=== PATIENT | female | born 1985 | race Caucasian/White ===

== ENCOUNTER 2017-01-21 18:43 | Emergency (ER) | payer OTHER ==
[~2017-01-21] VITALS: Ht 167.6 cm; Wt 54.7 kg
[2017-01-21 18:49] VITALS: TEMP 37.2; Ht 167.6 cm; Wt 54.7 kg
[2017-01-21] MEDS ORDERED: ONDANSETRON INJ 2 MG/ML 2 ML VIAL IV STA (19:08)
[2017-01-21] MEDS ORDERED: HYDROmorphone INJ 0.5 MG/0.5 ML SYR IV STA ×2 (19:08→19:13)
[2017-01-21] MEDS ORDERED: LAMO200T38 PO (19:13)
[2017-01-21] MEDS ORDERED: MULT-513 PO (19:13)
[2017-01-21] MEDS ORDERED: BUPR-79 PO (19:13)
[2017-01-21] MEDS ORDERED: HYDROmorphone INJ 1 MG/ML SYR IV STA (19:13)
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
[2017-01-21] MEDS ORDERED: OPTIRAY 320 IV PRN (19:30)
[2017-01-21 19:41] LABS: BASO % 0.3 %; BASO ABS # 0.02 K/uL (0-0.2); COMPLETE YES; EOS % 1.9 %; HEMATOCRIT 38.6 % (37-47); IG% 0.1 %; LYMPH % 25.3 %; LYMPH ABS # 1.91 K/uL (1.2-3.4); MEAN CELL VOLUME 86.4 fL (80-100); MEAN CORPUSCULAR HGB CONC 34.7 g/dl (32-36); MEAN PLATELET VOLUME 9.7 fL (7.4-10.4); MONO % 7.4 %; PLATELET COUNT 256 K/uL (130-400); RED BLOOD COUNT 4.47 M/uL (4.2-5.4); WHITE BLOOD COUNT 7.55 K/uL (4.8-10.8)
[2017-01-21] MEDS ORDERED: OXYC-57 PO (19:47)
[2017-01-21 19:55] LABS: ISTAT CREATININE 0.8 mg/dl (0.6-1.3); ISTAT HEMOGLOBIN 14.3 g/dl (12.0-16.0); ISTAT IONIZED CALCIUM 1.18 mmol/l (1.12-1.32)
[2017-01-21 19:59] LABS: BUN/CREATININE RATIO 6.5 (10-20); CALCIUM 9.2 mg/dl (8.5-10.1); CREATININE 0.97 mg/dl (0.60-1.20); POTASSIUM 3.5 mmol/L (3.5-5.1)
--- NOTE | 2017-01-21 20:21 | DIAGNOSTIC IMAGING REPORT ---
CT SCAN OF THE BRAIN WITHOUT IV CONTRAST CLINICAL HISTORY: Trauma. Head injury. COMPARISON STUDY: No priors. TECHNIQUE: Unenhanced axial CT scan of the brain is performed from the vertex to the skull base. Automated dose control exposure was utilized. FINDINGS: Brain parenchyma: The brain parenchyma is normal in appearance. There is no hemorrhage, mass effect, or evidence of acute territorial ischemia by CT criteria. Phan-white matter is preserved. No extra-axial fluid collection is seen. Ventricles, sulci, cisterns: Normal in configuration. Intracranial vasculature: The visualized intracranial vasculature at the skull base is normal in appearance. Calvarium: There is no depressed calvarial fracture. Soft tissues: A posterior scalp contusion is suspected. Sinuses and mastoids: The visualized paranasal sinuses are clear. The mastoid air cells are well pneumatized. Orbits: The bony orbits are grossly intact. IMPRESSION: No acute intracranial abnormality. Electronically signed by: Charlie Dotson M.D. 01/21/2017 8:19 PM Dictated Date/Time: 01/21/2017 8:17 PM
--- NOTE | 2017-01-21 20:23 | DIAGNOSTIC IMAGING REPORT ---
CT SCAN OF THE CERVICAL SPINE CLINICAL HISTORY: Trauma. COMPARISON STUDY: No priors. TECHNIQUE: CT scan of the cervical spine is performed from the skull base to the upper thoracic spine. Images are reviewed in the axial, sagittal, and coronal planes. IV contrast was not administered for this examination. FINDINGS: Skeletal structures: The skeletal structures are well mineralized. There is no evidence of fracture or subluxation involving the cervical spine. Vertebral body height and alignment are maintained. The odontoid process and lateral masses are intact. The atlantoaxial articulation is preserved. The spinous processes appear intact. Intervertebral discs: The disc spaces are well maintained. Central canal: Widely patent. Soft tissues: The prevertebral and paraspinous soft tissues are within normal limits. Calvarium: The visualized calvarium at the skull base appears intact. Brain parenchyma: Partially visualized brain parenchyma the skull base is within normal limits. Sinuses and mastoids: The visualized paranasal sinuses are clear. The mastoid air cells are well pneumatized. Lung apices: Clear as visualized. IMPRESSION: There is no evidence of fracture or subluxation involving the cervical spine. Electronically signed by: Charlie Dotson M.D. 01/21/2017 8:22 PM Dictated Date/Time: 01/21/2017 8:17 PM
--- NOTE | 2017-01-21 20:28 | DIAGNOSTIC IMAGING REPORT ---
CT SCAN OF THE FACIAL BONES WITHOUT IV CONTRAST CLINICAL HISTORY: Trauma. Head and facial injury. COMPARISON STUDY: CT of the brain performed concurrently on 01/21/2017. TECHNIQUE: High-resolution CT scan of the facial bones is performed. Images are reviewed in the axial, sagittal, and coronal planes. IV contrast was not administered for this examination. CT DOSE: Reported separately under the concurrently performed CT scan of the neck. FINDINGS: The skeletal structures are well mineralized. There is no evidence of facial bone fracture. The bony orbits are intact and the orbital contents are within normal limits. The zygomatic arches, nasal bones, and pterygoid plates are preserved. The maxilla and mandible are intact. A small bony excrescence arising from the left anterior body of the mandible on axial image #413. This is of doubtful significance. There are no layering blood products within the paranasal sinuses. The sinuses and mastoids are clear. The visualized calvarium and upper cervical spine are maintained. Partially imaged brain parenchyma is within normal limits. IMPRESSION: There is no evidence of facial bone fracture. Electronically signed by: Charlie Dotson M.D. 01/21/2017 8:27 PM Dictated Date/Time: 01/21/2017 8:16 PM
--- NOTE | 2017-01-21 20:37 | DIAGNOSTIC IMAGING REPORT ---
CT SCAN OF THE NECK WITH IV CONTRAST CLINICAL HISTORY: Head and neck trauma. COMPARISON STUDY: CT scan of the cervical spine performed concurrently on 01/21/2017. TECHNIQUE: Following the IV administration of 116 cc of Optiray 320, CT scan of the soft tissues of the neck was performed from the skull base to the upper chest. Images are reviewed in the axial, sagittal, and coronal planes. IV contrast was administered without complication. CT DOSE: 1136.94 mGy.cm FINDINGS: Pharynx: The nasopharynx, oropharynx, and laryngeal pharynx are normal in appearance. The pharyngeal airway is widely patent. There is no evidence of mass lesion. The vocal cords are symmetric. The parapharyngeal fat is well maintained. The prevertebral/retropharyngeal soft tissues are within normal limits. The epiglottis is normal. Soft tissues: There is mild induration and trace fluid seen in the deep soft tissues in the left cervical chain anterior to the sternocleidomastoid muscle, best seen on axial image #156. No organized hematoma is identified. Lymphadenopathy: No cervical lymphadenopathy is seen Thyroid: Normal in size and attenuation. Salivary glands: The parotid and submandibular glands are within normal limits. Brain parenchyma: The visualized brain parenchyma at the skull base is normal in appearance. Vascular structures: Internal carotid arteries and jugular veins are widely patent bilaterally. Skeletal structures: Imaged portions of the calvarium at the skull base are within normal limits. The cervical spine appears intact. Orbits: The bony orbits are intact. Orbital contents are within normal limits. Sinuses and mastoids: The visualized paranasal sinuses are clear. The mastoid air cells are well pneumatized. Lung apices: Visualized apical lung parenchyma is clear. IMPRESSION: 1. Soft tissue contusion is identified in the left cervical region anterior to the sternocleidomastoid muscle. No hematoma is seen. 2. The pharyngeal soft tissues are within normal limits. Electronically signed by: Charlie Dotson M.D. 01/21/2017 8:36 PM Dictated Date/Time: 01/21/2017 8:22 PM
[2017-01-21 21:21] VITALS: BP 140/81; PULSE 85; O2SAT 97
== END 2017-01-21 21:22 | disposition home or self-care (01) ==
LOC: C.EDB 18:45 → C.EDD 21:22
DX: S09.93XA Unspecified injury of face, initial encounter (principal); M54.2 Cervicalgia; W51.XXXA Accidental striking against or bumped into by another person, initial encounter; F17.210 Nicotine dependence, cigarettes, uncomplicated; Z79.899 Other long term (current) drug therapy; J45.909 Unspecified asthma, uncomplicated; Y99.0 Civilian activity done for income or pay; Y92.149 Unspecified place in prison as the place of occurrence of the external cause

== ENCOUNTER 2017-02-04 21:33 | Emergency (ER) | payer OTHER ==
[~2017-02-04] VITALS: Ht 167.6 cm; Wt 67.4 kg
[~2017-02-04 21:33] MED LIST: BUPR-79 PO; LAMO200T38 PO; MULT-513 PO; OXYC-57 PO
[2017-02-04 21:36] VITALS: TEMP 37; Ht 167.6 cm; Wt 67.4 kg
[2017-02-04] MEDS ORDERED: HYDROmorphone INJ 1 MG/ML SYR IV STA (23:05)
[2017-02-04] MEDS ORDERED: KETOROLAC TROMETHAMINE 30 MG/ML VIAL IV STA (23:05)
[2017-02-04] MEDS ORDERED: ONDANSETRON INJ 2 MG/ML 2 ML VIAL IV STA (23:05)
[2017-02-04 23:21] VITALS: O2SAT 98
[2017-02-05 00:26] VITALS: BP 114/63; PULSE 71; O2SAT 98
[2017-02-05] MEDS ORDERED: OXYCODONE IR HOME PACK PO ONE (00:30)
[2017-02-05] MEDS ORDERED: HYDROmorphone INJ 1 MG/ML SYR IV STA (00:33)
[2017-02-05] MEDS ORDERED: CYCL10TA6 PO (00:37)
[2017-02-05] MEDS ORDERED: OXYC1TAB3 PO (00:37)
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
--- NOTE | 2017-02-05 06:07 | DIAGNOSTIC IMAGING REPORT ---
MAXILLOFACIAL CT CT DOSE: HISTORY: Trauma attention left TMJ, left ear, trauma 2 weeks ago TECHNIQUE: Multiaxial CT images of the maxillofacial region were performed and reformatted in the coronal plane without the use of contrast. COMPARISON: 01/21/2017 FINDINGS: The visualized cervical spine, skull base, pterygoid plates, nasal bones, lamina papyracea, orbital floors, mandible, and zygomatic arches are intact. No fractures. The orbits are unremarkable. Slight deformity left nasal bones unchanged in the prior exam IMPRESSION: No fractures within the maxillofacial region. Electronically signed by: Antonino Durán M.D. 02/05/2017 6:05 AM Dictated Date/Time: 02/05/2017 6:03 AM
== END 2017-02-05 00:53 | disposition home or self-care (01) ==
LOC: C.EDB 21:35 → C.EDD 02-05 00:53
DX: R51 Headache (principal); W50.0XXD Accidental hit or strike by another person, subsequent encounter; Y92.149 Unspecified place in prison as the place of occurrence of the external cause; Y99.0 Civilian activity done for income or pay; J45.909 Unspecified asthma, uncomplicated; Z79.899 Other long term (current) drug therapy; F17.210 Nicotine dependence, cigarettes, uncomplicated